=== PATIENT | female | born 1955 | race Caucasian/White ===

== ENCOUNTER 2022-04-01 02:28 | Emergency (ER) | payer OTHER ==
[~2022-04-01] VITALS: Ht 160 cm; Wt 59.0 kg
[2022-04-01 02:36] VITALS: BP 123/65
--- NOTE | 2022-04-01 02:36 | NUR ---
BIBS TO R/O UTI, + URINARY URGENCY, -HEMATURIA, + LOWER BAD PAIN. PT A/OX4. TOLERATING R/A WELL WITH NO RESP DISTRESS. PT IN GOWN, BELONGINGS COLLECTED TO BE PLACED IN LOCKERS, AND WANDED BY SECURITY. SAFETY MEASURES IN PLACE.
--- NOTE | 2022-04-01 03:06 | NUR ---
URINE COLLECTED AND SENT TO LAB
[2022-04-01 03:46] LABS: BILIRUBIN,URINE NEGATIVE (NEGATIVE); COLOR,URINE YELLOW (YELLOW); LEUKOCYTE ESTERASE ,URINE NEGATIVE (NEGATIVE); NITRITE, URINE NEGATIVE (NEGATIVE); PH,URINE 5.5 (5.0-8.0); PROTEIN,URINE NEGATIVE (NEGATIVE); UGLUCOSE NEGATIVE (NEGATIVE); UROBILINOGEN,URINE 0.2 EU/dL (0.2)
[2022-04-01 03:50] LABS: BACTERIA,URINE Rare /HPF (None Seen); SQUAMOUS EPITHELIAL CELL,UR Few /HPF (None Seen)
[2022-04-01] MEDS ORDERED: NITR100C PO (04:05)
[2022-04-01] MEDS ORDERED: LEVO50TA8 PO (04:05)
[2022-04-01] MEDS ORDERED: NITROFURANTOIN/MONOHYDRATE MACROCRYSTALS 100 MG CAPSULE ONE (04:22)
[2022-04-01] MEDS ORDERED: NITROFURANTOIN MACROCRYSTAL 50 MG CAPSULE PO SCH (04:30)
--- NOTE | 2022-04-01 04:31 | NUR ---
Patient discharged to home in stable condition. Written and verbal after care instructions given. Patient verbalizes understanding of instruction.
== END 2022-04-01 04:40 | disposition home or self-care (01) ==
LOC: ER 02:30
DX: N39.0 Urinary tract infection, site not specified (principal); E03.9 Hypothyroidism, unspecified; Z87.440 Personal history of urinary (tract) infections; Z88.2 Allergy status to sulfonamides
CPT/HCPCS: 81001

== ENCOUNTER 2022-04-06 15:26 | Emergency (ER) | payer OTHER ==
[~2022-04-06] VITALS: Ht 160 cm; Wt 57.2 kg
[~2022-04-06 15:26] MED LIST: LEVO50TA8 PO; NITR100C PO
[2022-04-06 15:37] VITALS: BP 159/75
[2022-04-06 16:35] LABS: BILIRUBIN,URINE NEGATIVE (NEGATIVE); COLOR,URINE YELLOW (YELLOW); LEUKOCYTE ESTERASE ,URINE NEGATIVE (NEGATIVE); NITRITE, URINE NEGATIVE (NEGATIVE); PH,URINE 5.5 (5.0-8.0); PROTEIN,URINE NEGATIVE (NEGATIVE); UGLUCOSE NEGATIVE (NEGATIVE); UROBILINOGEN,URINE 0.2 EU/dL (0.2)
[2022-04-06 16:38] LABS: BACTERIA,URINE Few /HPF (None Seen); RBC,URINE 0-2 /HPF (0-2); SQUAMOUS EPITHELIAL CELL,UR Few /HPF (None Seen); YEAST,URINE Moderate /HPF (None Seen)
[2022-04-06] MEDS ORDERED: PSYL0.4C2 PO (17:41)
[2022-04-06] MEDS ORDERED: CEPH500C2 PO (17:41)
[2022-04-06] MEDS ORDERED: DOCU100C36 PO (17:41)
--- NOTE | 2022-04-06 17:51 | NUR ---
Patient discharged to home in stable condition. Written and verbal after care instructions given. Patient verbalizes understanding of instruction.
[2022-04-06] MEDS ORDERED: LEVO50TA8 PO (19:48)
== END 2022-04-06 17:52 | disposition home or self-care (01) ==
LOC: ER 15:32
DX: N39.0 Urinary tract infection, site not specified (principal); E03.9 Hypothyroidism, unspecified; F17.200 Nicotine dependence, unspecified, uncomplicated; Z60.2 Problems related to living alone; Z79.899 Other long term (current) drug therapy
CPT/HCPCS: 81001; 87086-TC